=== PATIENT | male | born 1985 | race Caucasian/White ===

== ENCOUNTER 2022-01-05 17:05 | Emergency (ER) | payer OTHER ==
[~2022-01-05 17:05] MED LIST: AMITIZA24 MCG PO; FEOSOL325 MG PO; FLONASE 0.05% N16 GM; LEVAQUIN500 MG PO; THERAGRAN M TAB1 EA PO; TYLENOL 325MG325 MG PO
[2022-01-05 17:55] LABS: HEMOGLOBIN 12.4 gm/dl (14.0-17.5); RED BLOOD COUNT 5.56 M/UL (4.20-5.50); WHITE BLOOD COUNT 8.4 K/UL (4.5-11.0)
[2022-01-05] MEDS ORDERED: MONODOX100 MG PO (22:56)
== END 2022-01-05 23:20 | disposition home or self-care (01) ==
LOC: ER1 17:05
PROVIDERS: Physician Assistant Medical
DX: L89.329 Pressure ulcer of left buttock, unspecified stage (principal); Z90.5 Acquired absence of kidney; Z88.1 Allergy status to other antibiotic agents; Z88.2 Allergy status to sulfonamides
CPT/HCPCS: 80053; 85025; 85652; 86140; 99284; Q9967